=== PATIENT | male | born 1945 | race Two or more races ===

== ENCOUNTER 2022-12-26 08:29 | Emergency (ER) | payer SELFPAY ==
[2022-12-26 10:01] VITALS: BP 150/77; PULSE 93; RESP 17; TEMP 98.4; O2SAT 95
[2022-12-26 12:11] LABS: Basophils # (auto) 0.1 10 ^3/uL (0-0.2); Basophils % (auto) 0.5 % (0.0-2.0); Eosinophils # (auto) 0.1 10 ^3/uL (0-0.8); Eosinophils % (auto) 0.9 % (0.0-7.0); Hematocrit 37.4 % (41.0-53.0); Hemoglobin 12.7 g/dL (13.5-17.5); Lymphocytes # (auto) 1.1 10 ^3/uL (0.4-5.4); Mean Corpuscular Hemoglobin 32.2 pg (28.0-32.0); Mean Corpuscular Hgb Conc. 33.9 g/dL (32.0-36.0); Mean Corpuscular Volume 95.1 fL (80.0-100.0); Monocytes # (auto) 0.9 10 ^3/uL (0-1.3); Monocytes % (auto) 7.6 % (0.0-12.0); Red Blood Cells 3.93 10^6/uL (4.5-5.90); Red Cell Distribution Width 13.7 % (11.8-14.3); White Blood Cell 12.2 10^3/uL (4.4-10.8)
[2022-12-26 12:35] LABS: INR 0.98 (0.9-1.15); Prothrombin Time 10.3 sec (9.3-11.8)
[2022-12-26 12:41] LABS: Alanine Aminotransferase 19 U/L (7-40); Alkaline Phosphatase 96 U/L (46-116); Anion Gap 6 (5-15); Aspartate Aminotransferase 14 U/L (13-40); BUN/Creatinine Ratio 30.9 (10.0-20.0); Blood Urea Nitrogen 69 mg/dL (9-23); Calcium 7.3 mg/dL (8.7-10.4); Carbon Dioxide 22 mmol/L (20-30); Chloride 114 mmol/L (98-107); Glucose 96 mg/dL (74-106); Lipase 60 U/L (12-53); Sodium 142 mmol/L (136-145)
[2022-12-26 12:42] LABS: Albumin 2.4 g/dL (3.2-4.8); Total Protein 4.9 g/dL (5.7-8.2)
[2022-12-26 14:28] LABS: Bilirubin, Total 0.4 mg/dL (0.2-1.0)
[2022-12-26] MEDS ORDERED: FAMO20TA10 PO (14:52)
[2022-12-26] MEDS ORDERED: DIPH25CA51 PO (14:52)
[2022-12-26] MEDS ORDERED: EPIN0.1I11 IJ (14:52)
[2022-12-26] MEDS ORDERED: PRED20TA2 PO (14:52)
== END 2022-12-26 15:38 | disposition home or self-care (01) ==
LOC: EDBD 08:29 → ER 08:29
DX: T78.49XA Other allergy, initial encounter (principal); N28.9 Disorder of kidney and ureter, unspecified; K80.20 Calculus of gallbladder without cholecystitis without obstruction; R10.13 Epigastric pain; I10 Essential (primary) hypertension; E11.9 Type 2 diabetes mellitus without complications; X58.XXXA Exposure to other specified factors, initial encounter
CPT/HCPCS: 36415; 71045; 74176; 80053; 83690; 84484; 85025; 85610